=== PATIENT | female | born 1975 | race American Indian/Alaskan Native ===

== ENCOUNTER 2019-05-24 13:55 | Emergency (ER) | payer SELFPAY | END 2019-05-24 22:21 | disposition left against medical advice (07) | LOC: ED 13:55 | DX: R07.0 Pain in throat (principal); Z53.21 Procedure and treatment not carried out due to patient leaving prior to being seen by health care provider ==

== ENCOUNTER 2021-04-12 10:24 | Emergency (ER) | payer OTHER ==
[2021-04-12 10:57] VITALS: BP 114/68
--- NOTE | 2021-04-12 12:06 | Emergency Department Report ---
- General Chief Complaint: Sore Throat Stated Complaint: THROAT PAIN Time Seen by Provider: 04/12/21 11:35 Source: patient Mode of arrival: Ambulatory Limitations: No Limitations - History of Present Illness Initial Comments: 45-year-old female who denies any significant past medical history presents to the ER today with complaints of sore throat. Patient says that her symptoms st arted yesterday. She states that she feels like her throat is swollen and it hurts to swallow. She denies any difficulty opening her mouth, drooling or difficulty breathing. She states that she did have a fever of 100.1 for which she took ibuprofen. She states that she gets similar symptoms every year around this time and usually associated with sinus infection or strep throat. She states that she has had nasal congestion, rhinorrhea and sinus pressure for a few weeks. 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 She states that she gets COVID-19 testing 3 days a week at her job. Her last test was Saturday and it was negative. She states that she did get the COVID-19 vaccine, the [employer] about 1 month ago. Complaint: sore throat -: days(s) - Related Data Previous Rx's Medication Instructions Recorded Last Taken Type Benzonatate [Tessalon Perles] 100 mg PO Q8HR #30 capsule 09/19/19 Unknown Rx Prednisone [predniSONE 10 mg 10 mg PO .TAPER #21 tab.ds.pk 09/19/19 Unknown Rx (6-Day Pack, 21 Tabs)] Amoxicillin/Potassium Clav 1 each PO Q12H #20 tablet 04/12/21 Unknown Rx [Augmentin 875-125 Tablet] Cetirizine HCl [Zyrtec 10mg tab] 10 mg PO DAILY #30 tablet 04/12/21 Unknown Rx Ibuprofen [Motrin 800 MG tab] 800 mg PO Q8HR PRN #30 tablet 04/12/21 Unknown Rx Pseudoephedrine ER [Sudafed 12 Hr] 120 mg PO BID #20 04/12/21 Unknown Rx Allergies Allergy/AdvReac Type Severity Reaction Status Date / Time No Known Allergies Allergy Verified 04/12/21 10:57 ED Review of Systems ROS: Stated complaint: THROAT PAIN Other details as noted in HPI Comment: All other systems reviewed and negative Constitutional: fever ENT: throat pain, congestion, other (rhinorrhea) Respiratory: denies: cough, shortness of breath, SOB with exertion, SOB at rest, wheezing Cardiovascular: denies: chest pain, palpitations Gastrointestinal: denies: abdominal pain, nausea, diarrhea, constipation, hematemesis, hematochezia Genitourinary: denies: urgency, dysuria, frequency, hematuria, discharge, abnormal menses, dyspareunia Musculoskeletal: denies: back pain, joint swelling, arthralgia, myalgia Skin: denies: rash, lesions, change in color, change in hair/nails Neurological: denies: headache, weakness, numbness, paresthesias, confusion, abnormal gait Psychiatric: denies: anxiety, depression, auditory hallucinations, visual hallucinations, homicidal thoughts, suicidal thoughts Hematological/Lymphatic: denies: easy bleeding, easy bruising, swollen glands ED Past Medical Hx - Past Medical History Previous Medical History?: No - Surgical History Past Surgical History?: No Additional Surgical History: c-sec x 3 - Social History Smoking Status: Never Smoker Substance Use Type: None - Medications Home Medications: Home Medications Medication Instructions Recorded Confirmed Last Taken Type Benzonatate [Tessalon Perles] 100 mg PO Q8HR #30 capsule 09/19/19 Unknown Rx Prednisone [predniSONE 10 mg 10 mg PO .TAPER #21 tab.ds.pk 09/19/19 Unknown Rx (6-Day Pack, 21 Tabs)] Amoxicillin/Potassium Clav 1 each PO Q12H #20 tablet 04/12/21 Unknown Rx [Augmentin 875-125 Tablet] Cetirizine HCl [Zyrtec 10mg tab] 10 mg PO DAILY #30 tablet 04/12/21 Unknown Rx Ibuprofen [Motrin 800 MG tab] 800 mg PO Q8HR PRN #30 tablet 04/12/21 Unknown Rx Pseudoephedrine ER [Sudafed 12 Hr] 120 mg PO BID #20 04/12/21 Unknown Rx ED Physical Exam - General Limitations: No Limitations General appearance: alert, in no apparent distress - Head Head exam: Present: atraumatic, normocephalic, normal inspection - Eye Eye exam: Present: normal appearance, PERRL, EOMI Pupils: Present: normal accommodation - ENT ENT exam: Present: mucous membranes moist - Expanded ENT Exam Expanded TM/Canal exam: Effusion: Right TM, Left TM Mouth exam: Present: normal external inspection Throat exam: Positive: tonsillar erythema, tonsillomegaly (mild ). Negative: tonsillar exudate, R peritonsillar mass, L peritonsillar mass - Neck Neck exam: Present: normal inspection, full ROM, lymphadenopathy. Absent: meningismus - Respiratory Respiratory exam: Present: normal lung sounds bilaterally. Absent: respiratory distress, wheezes, rales, rhonchi - Cardiovascular Cardiovascular Exam: Present: regular rate, normal rhythm, normal heart sounds - Neurological Exam Neurological exam: Present: alert, oriented X3, CN II-XII intact, normal gait - Psychiatric Psychiatric exam: Present: normal affect, normal mood - Skin Skin exam: Present: intact ED Course Vital Signs 04/12/21 10:56 Temperature 98.7 F Pulse Rate 75 Respiratory 16 Rate Blood Pressure 114/68 O2 Sat by Pulse 97 Oximetry ED Medical Decision Making - Medical Decision Making 45-year-old female who denies any significant past medical history presents to the ER today with complaints of sore throat. Patient says that her symptoms started yesterday. She states that she feels like her throat is swollen and it hurts to swallow. She denies any difficulty opening her mouth, drooling or difficulty breathing. She states that she did have a fever of 100.1 for which she took ibuprofen. She states that she gets similar symptoms every year around this time and usually associated with sinus infection or strep throat. She states that she has had nasal congestion, rhinorrhea and sinus pressure for a few weeks. 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 She states that she gets COVID-19 testing 3 days a week at her job. Her last test was Saturday and it was negative. She states that she did get the COVID-19 vaccine, the [employer] about 1 month ago. 1306: Rapid strep negative. Patient will be covered with antibiotics because I am still concerned for possible strep, and also bacterial sinus infection. Patient states that she will go by her job tomorrow to get a repeat Covid test just to make sure that she is not positive. She is overall not toxic or significantly ill-appearing. She is not a significant distress. She is tolerating her secretions well. She has no stridor and no trismus. Her voice is normal. She is not in any respiratory distress. She has no meningeal signs on exam. No evidence of peritonsillar abscess, Pa angina, epiglottitis, sepsis or any other emergent conditions warranting additional testing at this time. Her vital signs are completely normal. Discussed diagnosis and treatment plan with patient. She expressed understanding of all instructions and agree with plan. Patient stable at time of discharge. Critical care attestation.: If time is entered above; I have spent that time in minutes in the direct care of this critically ill patient, excluding procedure time. ED Disposition Clinical Impression: Acute bacterial sinusitis, Pharyngitis Disposition: HOME / SELF CARE / HOMELESS Is pt being admited?: No Does the pt Need Aspirin: No Condition: Stable Instructions: Pharyngitis, Sinusitis, Adult, [id number] Additional Instructions: I recommend that you take the Augmentin, ibuprofen, Sudafed and the Zyrtec as prescribed to help your symptoms. Drink lots of fluids. Given that majority of his symptoms did start yesterday, I would recommend getting a COVID-19 test either at your job or a outpatient clinic or pharmacy to rule it out as a cause.. In the meantime lots of fluids. Take a multivitamin that contains vitamin C, zinc and vitamin D. Follow-up with your primary care doctor. Return to the ER if your symptoms worsens or changes in any way. Prescriptions: Amoxicillin/Potassium Clav [Augmentin 875-125 Tablet] 1 each PO Q12H #20 tablet Ibuprofen [Motrin 800 MG tab] 800 mg PO Q8HR PRN #30 tablet PRN Reason: Pain , Severe (7-10) Pseudoephedrine ER [Sudafed 12 Hr] 120 mg PO BID #20 Cetirizine HCl [Zyrtec 10mg tab] 10 mg PO DAILY #30 tablet Referrals: PRIMARY CAREMD [Referring] - 3-5 Days Forms: Work/School Release Form(ED) Time of Disposition: 13:01
[2021-04-12] MEDS ORDERED: dexAMETHasone 20 MG/5 ML VIAL IM ONE (12:31)
== END 2021-04-12 13:08 | disposition home or self-care (01) ==
LOC: ED 10:24
DX: J02.9 Acute pharyngitis, unspecified (principal); J01.90 Acute sinusitis, unspecified
CPT/HCPCS: 87116; 87430; 96372; 99283; J1100